=== PATIENT | female | born 1975 | race Caucasian/White ===

== ENCOUNTER 2020-06-07 07:25 | Day surgery (SDC) | payer BC ==
[~2020-06-07] VITALS: Ht 160 cm; Wt 59.4 kg
[~2020-06-07 07:25] MED LIST: CLARITIN10 M2 PO; CYCLOBENZAPRINE10 MG PO; MIRENA1 EACH IY; NAPROXEN250 MG PO
[2020-06-07] MEDS ORDERED: HYDROCODON-ACE1 EA11 PO (11:05)
--- NOTE | 2020-06-07 11:05 | NUR ---
06/07/20 1105 Mike,Elizabeth 1057 PT ARRIVED TO PACU ON 6L VIA MASK, PT ASLEEP. VSS. RESP EVEN AND UNLABORED. 1103 PT WAKES TO TACTILE STIMULI AND IS REORIENTED TO PACU. PT DENIES PAIN AND NAUSEA AND EASILY FALLS BACK TO SLEEP.
--- NOTE | 2020-06-07 12:25 | NUR ---
RESPONDS TO VOICE. DENIES NAUSEA OR PAIN. SIPS OF WATER GIVEN WITHOUT PROBLEMS. VSS
--- NOTE | 2020-06-07 12:37 | NUR ---
STEADY ON FEET WITH ONE PERSON STAND BY ASSIST. AMBULATED TO BR FOR UNMEASURED URINE VOID.
--- NOTE | 2020-06-10 07:11 | NUR ---
LATE ENTRY STEADY ON FEET WITH ONE PERSON STAND BY ASSIST FOR AMBULATION TO BATHROOM. DENIES NAUSEA OR PAIN. SLING PROVIDED PT CANNOT LIFT ARM DUE TO BLOCK. PT EDUCATED THAT SLING IS ONLY TO BE USED UNTIL BLOCK WEARS OFF.
--- NOTE | 2020-06-10 07:37 | OR ---
[facility] [address], [place] [address] Signed DATE OF OPERATION: 06/07/2020 SURGEON: López Alvarenga MD PREOPERATIVE DIAGNOSIS: Carpometacarpal arthrosis, left thumb. POSTOPERATIVE DIAGNOSIS: Carpometacarpal arthrosis, left thumb. PROCEDURE PERFORMED: Ligament reconstruction tendon interposition, left thumb. COMPUTER SCIENCE INTERN: ARNALDO Mendoza ANESTHESIA: General with axillary block. TOURNIQUET TIME: 79 minutes. BRIEF HISTORY: Nanci is a 44-year-old female with pain and weakness in her left thumb. She had nonoperative treatment without substantial improvement and wished to proceed with operative intervention. Risks, benefits, and alternatives were discussed at length. She understands and wished to proceed. DESCRIPTION OF PROCEDURE: Once consent was obtained, she was taken to the operating room. After adequate anesthesia, she was placed on operating room table. All downside pressure points were well padded. Left arm was placed in well-padded proximal arm tourniquet. The arm was then prepped and draped in standard sterile fashion, exsanguinated using Esmarch bandage and tourniquet inflated to 200 mmHg. A curvilinear incision was made along the glabrous border of the thenar eminence, carried through skin and subcutaneous tissue. The radial sensory branch was retracted and protected. The volar capsule was then incised longitudinally and elevated off the trapezium. The trapezium was easily identified and was dissected free of surrounding soft tissue removed piecemeal with care taken to protect the FCR. Once this was completely removed, the FCR was mobilized and transected through a separate stab incision about 6 cm proximally at the forearm. This was then Electronically Signed By: LÓPEZ ALVARENGA MD 06/10/20 0737 PATIENT NAME: NANCI MATOS OPERATIVE REPORT DATE OF : 71 REPORT #: [id number] PHYSICIAN: LÓPEZ ALVARENGA MD PCP: DEBORA ALVAREZ PA-C REPORT IS CONFIDENTIAL AND NOT TO BE RELEASED WITHOUT AUTHORIZATION [facility] [address], [place] [address] Signed brought down into the wound. It was then split longitudinally. A 2.7 mm drill hole was then placed obliquely across the base of the thumb, splinted and the tendon was then brought through this. It was then settled using the push-pull technique and sutured back to its base on the 2nd metacarpal using 0 Vicryl. The remaining tendon ends along with the other limb were then sutured into the anchovy and placed in the base of the wound. The wound was copiously irrigated with antibiotic solution. The base of the metacarpal was quite stable at the end of the procedure. There was no need for pin. The capsule was then repaired using 2-0 Monocryl. The subcutaneous closure was obtained using 3-0 Monocryl and Steri-Strips were applied. The proximal incision was closed similarly. Both wounds were dressed with Adaptic and sterile gauze. She was placed in a thumb spica splint, awakened and taken to the recovery room in satisfactory condition. All sponge, needle, and instrument counts were correct. López Alvarenga MD BA/GIULIAL /[id number] Copies: ~ Electronically Signed By: LÓPEZ ALVARENGA MD 06/10/20 0737 PATIENT NAME: HILARIO MATOSRODNEY Espinosa OPERATIVE REPORT DATE OF : 71 REPORT #: [id number] PHYSICIAN: LÓPEZ ALVARENGA MD PCP: DEBORA ALVAREZ PA-C REPORT IS CONFIDENTIAL AND NOT TO BE RELEASED WITHOUT AUTHORIZATION
== END 2020-06-07 12:55 | disposition home or self-care (01) ==
LOC: DS 07:25 → OPS 07:25 → DS 08:45 → OPS 09:30
PROVIDERS: ATTEND Specialist
PROC: 0RBX0ZZ Excision of Left Finger Phalangeal Joint, Open Approach (ICD-10-PCS; principal; 2020-06-07 09:30)
DX: M18.12 Unilateral primary osteoarthritis of first carpometacarpal joint, left hand (principal); F17.200 Nicotine dependence, unspecified, uncomplicated; Z79.899 Other long term (current) drug therapy; Z88.2 Allergy status to sulfonamides
CPT/HCPCS: 01830; 64417; 76942; J0690; J1100; J1885; J2001; J2250; J2405; J2704; J2795; J7121

== ENCOUNTER 2022-03-04 02:58 | Emergency (ER) | payer BC ==
[~2022-03-04] VITALS: Ht 160 cm; Wt 70.5 kg
[~2022-03-04 02:58] MED LIST changes: +HYDROCODON-ACE1 EA11 PO
== END 2022-03-04 04:39 | disposition home or self-care (01) ==
LOC: ED 02:58
DX: G43.119 Migraine with aura, intractable, without status migrainosus (principal); Z20.822 Contact with and (suspected) exposure to COVID-19; F17.200 Nicotine dependence, unspecified, uncomplicated; Z88.8 Allergy status to other drugs, medicaments and biological substances; Z88.2 Allergy status to sulfonamides; Z79.899 Other long term (current) drug therapy
CPT/HCPCS: 36415; 64505; 80053; 85025; 87502; 99283-25; C9803; J0780; J1200; J1885; J7121; U0003